=== PATIENT | female | born 1960 | race American Indian/Alaskan Native ===

== ENCOUNTER 2022-03-25 10:10 | Emergency (ER) | payer SELFPAY ==
--- NOTE | 2022-03-25 11:42 | Emergency Department Report ---
ED CPR HPI - General Stated Complaint: CARDIAC ARREST - History of Present Illness Initial Comments: 61 yo F brought in by EMS with CPR in progress. According to EMS they got a call for any unresponsive patient with unknown timing but the last seen sleeping and snoring was around 05:30 AM by her daughter. By patients daughter who arrived later during examination patient has history of lupus and was recently diagnosed with cervical cancer s/p surgery and CHEMO 2 weeks ago. She use to leave in [place] and was moved here to start living with her daughter until stable. She was given 4 round of epi by the EMS since 09:26 until arrival in the ED at 10:13 AM. Pt was coded for 47 minutes effectively and was intubated on the field. Pt however remained in asystole all the time. History is very limited to EMS and patient's daughter. No other modifying or associated factors reported. Complaint: found unresponsive, unknown ED Review of Systems ROS: Stated complaint: CARDIAC ARREST Other details as noted in HPI Comment: intubated ED Physical Exam - General Limitations: Other (intubated ) General appearance: obtunded, other (intubated ) - Head Head exam: Present: atraumatic - Eye Eye exam: Present: other Pupils: Present: other (pupil dilated and fixed ) ED Course - Reevaluation(s) Reevaluation #1: 03/25/22 11:44 cardiopulmonary arrests -- brought in by EMS in asystole after been coded for 46 hours-- still present in asystole after 4 round of epi-- and have had [employer] with no response either. Pt pronounce at 10:14 AM-- Reevaluation #2: 03/25/22 11:50 Pt's daughter came in to ED later and was updated while her brother was listening on the phone. Unsure the cause of cardiopulmonary arrest but could be and not limited to myocardiac infarction, pulmonary emblism, respiratory failure or CVA. Critical care attestation.: If time is entered above; I have spent that time in minutes in the direct care of this critically ill patient, excluding procedure time. ED Disposition Clinical Impression: Cardiopulmonary arrest Disposition: 20 Is pt being admited?: No Does the pt Need Aspirin: No Condition: Undetermined Instructions: CPR, Adult Referrals: PRIMARY CARE, [Primary Care Provider] - 3-5 Days Time of Disposition: 10:14
== END 2022-03-25 12:56 ==
LOC: ED 10:15
DX: I46.9 Cardiac arrest, cause unspecified (principal)
CPT/HCPCS: 92950; 99285